=== PATIENT | male | born 1955 | race Caucasian/White ===

== ENCOUNTER 2017-02-03 19:43 | Emergency (ER) | payer OTHER ==
[~2017-02-03] VITALS: Ht 177.8 cm; Wt 71.0 kg
[2017-02-03 19:51] VITALS: BP 179/93; PULSE 61; RESP 18; O2SAT 97
--- NOTE | 2017-02-03 20:46 | ED.REPORT ---
HPI-Abd Pain M 40 and Over Date of Service Feb 03, 2017 ED Provider: Carmine Lynch DO Pt is a 61 y/o male who presents to the ED c/o LLQ abdominal pain onset 2 hours ago. He describes his pain as "dull" and "aching" that now radiates to his back. He denies dysuria, hematuria, nausea, vomiting, diarrhea, constipation, or SOB. Nursing Notes Stated Complaint: CRAMPS ON LEFT SIDE Chief Complaint: Male Abdominal Pain Nursing Notes Reviewed: Yes Allergies: Coded Allergies: No Known Allergies (Unverified , 02/03/17) General Time Seen by MD: 20:46 Chief Complaint Abdominal pain (LLQ) Hx Obtained From: Patient Arrived By: Walk-in Sudden in Onset?: Yes Onset Occurred: 1 - 4 hours ago Location: : LLQ Quality: Aching, Dull Radiation: : Back Severity: Current: Moderate Severity: Maximum: Severe Recent Healthcare: No recent hospitalization, Recent doctor visit Similar Sx Previous: No Risk Factors )( AAA Risk Stratification Risk factors reviewed Past Medical History Past Medical History Denies Past Surgical History Hernia Smoking History Unknown if Ever Smoker Social History Alcohol Use: "Social" Ambulatory Status Independent Review of Systems Respiratory: Denies: Shortness of breath GI: Reports: Abdominal pain (LLQ), Denies: Constipation, Diarrhea, Nausea, Vomiting Male: Denies Dysuria, Denies Hematuria Complete sys rev & neg: except as marked. Physical Exam Initial Vital Signs Vital Signs (First) Date Time Temp Pulse Resp B/P Pulse Ox O2 Delivery O2 Flow Rate FiO2 02/03/17 19:51 37.5 61 18 179/93 97 Room Air Initial VS: Reviewed Head / Eyes: Atraumatic, Normocephalic Neck: Supple, Full range of motion Extremities: Vascular intact, Neuro intact, No swelling, No tenderness Skin: Warm, Dry, No cyanosis Neurologic: Alert, Oriented, Nonfocal Psychiatric: Mood/affect normal, Behavior normal, Normal thought content General/Constitutional: Awake, Alert Distress / Hydration: Positive: Distress moderate Respiratory / Chest: Atraumatic, Breath sounds NL, Breath sounds = bilat, No respiratory distress Cardiovascular: Heart rate NL, Regular rhythm, Heart sounds NL Abdomen: Atraumatic, Soft Tenderness/Guarding/Rebound: Positive: Tender LLQ... (Moderate) Back: Inspection NL, Full range of motion Mild CVAT Interpretation & Diagnostics Lab Results Interpretation Result Diagram: 02/03/17211002/03/172110 Test 02/03/17 21:11 02/03/17 21:12 02/03/17 21:39 White Blood Count 15.4th/mm3 (3.8-10.1) Red Blood Count 4.51mil/mm3 (4.40-5.80) Hemoglobin 13.7g/dL (13.8-17.2) Hematocrit 40.4% (41.0-50.0) Mean Corpuscular Volume 89.6fL (81-100) Mean Corpuscular Hemoglobin 30.4pg (27.0-35.0) Mean Corpuscular Hemoglobin Concent 33.9% (32.0-37.0) Red Cell Distribution Width 12.9% (12.3-15.4) Platelet Count 285bil/L (150-400) Neutrophils (%) (Auto) 83.9% (40-74) Lymphocytes (%) (Auto) 6.7% (14-46) Monocytes (%) (Auto) 8.6% (4-12) Eosinophils (%) (Auto) 0.3% (0-5) Basophils (%) (Auto) 0.2% (0-3) Sodium Level 138mEq/L (134-144) Potassium Level 4.0mEq/L (3.5-5.2) Chloride Level 100mEq/L (97-108) Carbon Dioxide Level 22mmol/L (18-29) Blood Urea Nitrogen 29mg/dL (8-27) Creatinine 1.23mg/dL (0.76-1.27) Estimat Glomerular Filtration Rate 64mL/min (>59) Glucose Level 105mg/dL (60-99) Calcium Level 9.3mg/dL (8.5-10.1) Magnesium Level 2.2mg/dL (1.6-2.6) Total Bilirubin 0.4mg/dL (0.0-1.2) Aspartate Amino Transf (AST/SGOT) 20U/L (0-50) Alanine Aminotransferase (ALT/SGPT) 16U/L (0-44) Alkaline Phosphatase 76U/L (25-160) Total Protein 7.7g/dL (6.4-8.4) Albumin 4.5g/dL (3.4-5.0) Lipase 23U/L (13-60) Hold Carlson Top Tube Received (Received) Urine Color Yellow (YELLOW) Urine Appearance Clear (CLEAR,HAZY) Urine pH 6.0 (5.0-8.0) Urine Specific [place] 1.015 (1.003-1.035) Urine Protein Negativemg/dL (NEG,TRACE) Urine Glucose (UA) Negativemg/dL (NEGATIVE) Urine Ketones Tracemg/dL (NEGATIVE) Urine Occult Blood Large (NEGATIVE) Urine Nitrite Negative (NEGATIVE) Urine Bilirubin Negative (NEGATIVE) Urine Urobilinogen Normalmg/dL (NORMAL) Urine Leukocyte Esterase Negative (NEGATIVE) Urine RBC 11-50/hpf (0-2) Urine WBC 0-5/hpf (0-5) Urine Epithelial Cells Occasional/hpf (NONE-MOD) Urine Crystals None seen (NONE SEEN) Urine Bacteria Few/hpf (NONE-FEW) Urine Hyaline Casts None/lpf (NONE) Urine Granular Casts None seen (NONE SEEN) Urine Waxy Casts None seen (NONE SEEN) Urine Red Blood Cell Casts None seen (NONE SEEN) Urine White Blood Cell Casts None seen (NONE SEEN) Urine Mucus None seen (None Seen) Urine Trichomonas None seen (NONE SEEN) Urine Yeast None (NONE SEEN) Urinalysis Comment None Urine Culture Reflexed Not indicated Hold Urine Received (Received) CT Abd / Pelvis Interpretation IMPRESSION: 1. 4 mm diameter ureteral calculus at the left ureterovesicular junction with resultant moderate perinephric fat stranding and mild hydronephrosis. This finding was discussed with Dr. Lynch 10:15 PM on 02/03/17. 2. Diverticulosis. No acute diverticulitis. 3. Nonvisualization of the appendix. However, there are no ancillary findings to suggest acute appendicitis. Dictated by: Awa Davenport M.D. on 02/03/2017 at 22:10 Approved by: Awa Davenport M.D. on 02/03/2017 at 22:15 Study type: Abdominal CT no contrast Interpretation / Wet Read by: Interpret - Radiologist Re-Eval/Medical Decision Med Decision/Clinical Course Left UVJ stone with moderate [place]. Good relief of pain. Normal renal function. No signs of infection. We will treat symptomatically and have close outpatient follow-up. Routine opiate warnings given Source of Hx: Old records Time of Eval: 22:54 Patient Status: Condition improved Re-Evaluation/Progress Note: Patient rechecked. Discussed plan for discharge. Patient understands and agrees with plan. F/U instructions and RTER warnings given. All questions addressed at this time. Counseled Regarding: Diagnosis, Lab results, Need for follow-up, When/why to return to ED Discharge & Departure Primary Impression: Left ureteral stone Disposition: Home Vital Signs - All Vital Signs Date Time Temp Pulse Resp B/P Pulse Ox O2 Delivery O2 Flow Rate FiO2 02/04/17 00:15 36.8 80 20 152/86 99 Room Air 02/03/17 21:54 36.7 75 18 160/93 99 Room Air 02/03/17 19:51 37.5 61 18 179/93 97 Room Air )( All Prior VS Reviewed: Yes Condition: Stable Patient Instructions: Kidney Stones (ED) Additional Instructions: Your CT results were reassuring. It appears you have a left uretal kidney stone that is about to pass. Take Flomax once a day for 5 days. Take 1-2 [place] every 6 hours for pain. Do not drive, drink alcohol, or take acetaminophen while taking [place]. Follow-up with your primary care doctor tomorrow to be seen this week for a recheck. Return to the emergency department if you have any new or worsening symptoms, including fevers, nausea, or vomiting. If you haven't passed the stone in one week, follow-up with a urologist. Urologist: Dr. Ai Dupree Referrals: NOPCP (PCP) Ai Dupree MD Scribe Attestation Portions of this note were transcribed by Chloé Garcia. I, Dr. Lynch, personally performed the history, physical exam and medical decision-making; I reviewed and confirmed the accuracy of the information in the transcribed note. copies to: Ai uDpree MD, Todd P DO Feb 03, 2017 20:46 Chloé Garcia Feb 03, 2017 21:04
[2017-02-03] MEDS ORDERED: Ondansetron 2 mg/mL 2 mL Inj IVPUSH PRN (21:05)
[2017-02-03] MEDS ORDERED: 0.9% Sodium Chloride 1,000 ML IV ONE (21:05)
[2017-02-03 21:15] LABS: BASOPHILS % (AUTO) 0.2 % (0-3); EOSINOPHILS % (AUTO) 0.3 % (0-5); MONOCYTES % (AUTO) 8.6 % (4-12); Mean Corpuscular Hemoglobin 30.4 pg (27.0-35.0); Mean Corpuscular Volume 89.6 fL (81-100); NEUTROPHILS % (AUTO) 83.9 % (40-74); Platelet Count 285 bil/L (150-400)
[2017-02-03] MEDS: HYDROmorphone 0.5 mg/0.5 mL iSecure Syringe IVPUSH PRN ×2 (21:20→21:53)
[2017-02-03 21:40] LABS: Magnesium 2.2 mg/dL (1.6-2.6)
[2017-02-03 21:54] VITALS: BP 160/93; PULSE 75; RESP 18; O2SAT 99
--- NOTE | 2017-02-03 22:16 | DRSVH ---
PROCEDURE: CT KUB ([id number]) INDICATIONS: LLQ and left flank pain, hematuria TECHNIQUE: Noncontrast 5 mm thick sections acquired from the diaphragms to the symphysis. 5 mm thick coronal an d sagittal reformats were then performed. For radiation dose reduction, the following was used: aut omated exposure control, adjustment of mA and/or kV according to patient size. COMPARISON: None. FINDINGS: Image quality: Excellent. Lung bases: Lung bases are clear. Heart size is normal. Urinary system: The right kidney demonstrates normal size. No right hydronephrosis, perinephric fat stranding, or nephrolithiasis. The left kidney is mildly enlarged with moderate perinephric fat stran ding and mild hydronephrosis. There is mild left hydroureter. A 4 mm diameter calculus is present at the left ureterovesicular junction (series 2, image 64). The bladder is thin walled. No bladder calcu li. Other solid organs: Liver and spleen are normal in size. Gallbladder is unremarkable. Pancreas is normal in contours. No adrenal nodules. Peritoneum and bowel: Unenhanced bowel loops demonstrate normal wall thickness and caliber. The appe ndix is not visualized; however there is no discrete right lower quadrant fluid or fat stranding to s uggest acute appendicitis. There are scattered sigmoid diverticula. No evidence for diverticulitis. N o free fluid or air. Nodes and vessels: No retroperitoneal or mesenteric adenopathy by size criteria. Aorta and inferior vena cava are normal in caliber. Abdominal wall: No ventral hernias. Pelvis: No free pelvic fluid. No inguinal hernias or adenopathy. Bones: No suspicious bony lesions. No vertebral body compression fractures. IMPRESSION: 1. 4 mm diameter ureteral calculus at the left ureterovesicular junction with resultant moderate herve nephric fat stranding and mild hydronephrosis. This finding was discussed with Dr. Lynch 10:15 PM on 02/03/17. 2. Diverticulosis. No acute diverticulitis. 3. Nonvisualization of the appendix. However, there are no ancillary findings to suggest acute append icitis. Dictated by: Awa Davenport M.D. on 02/03/2017 at 22:10 Approved by: Awa Davenport M.D. on 02/03/2017 at 22:15
[2017-02-03 22:39] LABS: APPEARANCE,URINE CLEAR (CLEAR,HAZY); COLOR,URINE YELLOW (YELLOW)
[2017-02-03 22:40] LABS: OCCULT BLOOD,URINE LARGE (NEGATIVE); UROBILINOGEN,URINE NORMAL (NORMAL)
[2017-02-03] MEDS ORDERED: _HYDROcodone/APAP 5-325 mg Tablet PO PRN (22:55)
[2017-02-04 00:15] VITALS: BP 152/86; PULSE 80; RESP 20; O2SAT 99
[2017-02-04] MEDS ORDERED: ONDA4TAB9 PO (13:43)
== END 2017-02-03 23:10 | disposition home or self-care (01) ==
LOC: SED 19:43
DX: N20.1 Calculus of ureter (principal)
CPT/HCPCS: 36415; 74176; 80053; 81000; 83690; 83735; 85025; 96361; 96374; 96375; 96376; 99285; J1170; J1885; J2405; J7030

== ENCOUNTER 2017-02-04 11:23 | Emergency (ER) | payer OTHER ==
[~2017-02-04] VITALS: Ht 177.8 cm; Wt 70.5 kg
[2017-02-04 11:31] VITALS: BP 174/95; PULSE 63; RESP 16; O2SAT 100
--- NOTE | 2017-02-04 11:50 | ED.REPORT ---
HPI-Abd Pain M 40 and Over Date of Service Feb 04, 2017 ED Provider: Dr. Echevarria Pt is a generally healthy 61 y/o male presenting to the ED c/o recurrence of intermittent left flank and LLQ abdominal pain. The patient was seen in the ED for the same complaints last night and was diagnosed with a 4 mm ureteral stone that was located at the UVJ. He woke up this morning and was experiencing nausea , vomiting, and recurrence of his pain. He took half of a tablet of his prescribed hydrocodone without relief and then took another full tablet on the way to the ED. He says he was not given any anti-emetics. Pt denies fever. Nursing Notes Stated Complaint: REACTION TO MEDICATION Chief Complaint: Male Abdominal Pain Nursing Notes Reviewed: Yes Allergies: Coded Allergies: No Known Allergies (Unverified , 02/04/17) Scheduled PRN Ondansetron ODT (Zofran ODT) 4 Mg Tablet 4 MG PO Q4H PRN PRN For Nausea General Time Seen by MD: 11:50 Chief Complaint Flank pain left Hx Obtained From: Patient Arrived By: Walk-in Sudden in Onset?: No Onset Occurred: 1 - 4 hours ago Symptom Duration: Intermittent Progression since Onset: Intermittent Location: : Flank left: LLQ Quality: Painful Severity: Current: Moderate Severity: Maximum: Severe Recent Healthcare: Recent doctor visit, Recent testing, Previous diagnosis, Prior workup Past Medical History Past Medical History Nephrolithiasis Past Surgical History Hernia Smoking History Unknown if Ever Smoker Social History Alcohol Use: "Social" Ambulatory Status Independent Review of Systems Constitutional: Denies: Fever GI: Reports: Abdominal pain, Nausea, Vomiting Male: Reports Flank pain Complete sys rev & neg: except as marked. Physical Exam Initial Vital Signs Vital Signs (First) Date Time Temp Pulse Resp B/P Pulse Ox O2 Delivery O2 Flow Rate FiO2 02/04/17 11:31 36.7 63 16 174/95 100 Room Air Initial VS: Reviewed, Vital signs abnormal Head / Eyes: Atraumatic, Normocephalic ENT: Mucous membranes moist, Conjunctiva normal Neck: Supple, Full range of motion Extremities: Vascular intact, Neuro intact Skin: Warm, Dry, No cyanosis Neurologic: Alert, Oriented, Nonfocal Psychiatric: Mood/affect normal, Behavior normal, Normal thought content General/Constitutional: Awake, Alert, Cooperative, Not toxic appearing Distress / Hydration: Positive: Distress moderate (secondary to pain) Appearance / Presentation: Positive: In pain, Uncomfortable Respiratory / Chest: Breath sounds NL, Breath sounds = bilat, No respiratory distress, No rales, No rhonchi, No wheezing Cardiovascular: Heart rate NL, Regular rhythm, Heart sounds NL, No murmurs Abdomen: Soft, Non-tender, No guarding, No rebound, No distention Back: Full range of motion, Painless range of motion Left CVAT present Re-Eval/Medical Decision Med Decision/Clinical Course Pain control given, discussion regarding appropriate analgesia. Return in follow-up precautions given Source of Hx: Old records Summary of Info: Review of visit from yesterday Time of Eval: 13:35 Re-Evaluation/Progress Note: Pt rechecked. No acute distress. Pain improved. Informed pt of plan for discharge. Pt understands and agrees with plan for discharge. F/U instructions and RTER warnings given. All questions addressed. Counseled Regarding: Diagnosis, Need for follow-up, When/why to return to ED Discharge & Departure Primary Impression: Left ureteral stone Disposition: Home Vital Signs - All Vital Signs Date Time Temp Pulse Resp B/P Pulse Ox O2 Delivery O2 Flow Rate FiO2 02/04/17 13:56 36.7 65 16 159/89 100 Room Air 02/04/17 11:31 36.7 63 16 174/95 100 Room Air )( All Prior VS Reviewed: Yes Condition: Stable Patient Instructions: Ureteral Stones (ED) Additional Instructions: You have a 4 mm left ureteral stone that is almost passed based on the CT scan taken yesterday. You can take Naproxen and Hydrocodone together. It is OK to take 1-2 tablets of the hydrocodone at a time. This medication is sedating so do not drive or consume alcohol while taking it. Take Zofran every 4 hours as needed for nausea and vomiting. Return to the emergency department if you experience uncontrolled pain, persistent vomiting, fever, inability to urinate, or for other concerning symptoms. Follow-up with your primary care doctor in 2-3 days if symptoms persist. You may also make an appointment with the urologist who was been referred to you today. Referrals: Olivia Catalan MD Scribe Attestation Portions of this note were transcribed by Alistair Zapien. I, Dr. Echevarria personally performed the history, physical exam and medical decision-making; I reviewed and confirmed the accuracy of the information in the transcribed note. Low Echevarria DO Feb 04, 2017 11:50 ALISTAIR ZAPIEN Feb 04, 2017 12:04
[2017-02-04] MEDS ORDERED: HYDROmorphone 0.5 mg/0.5 mL iSecure Syringe IVPUSH PRN (12:05)
[2017-02-04] MEDS ORDERED: Ondansetron 2 mg/mL 2 mL Inj IVPUSH PRN (12:05)
[2017-02-04] MEDS ORDERED: ONDA4TAB9 PO (13:43)
[2017-02-04 13:56] VITALS: BP 159/89; PULSE 65; RESP 16; O2SAT 100
== END 2017-02-04 13:57 | disposition home or self-care (01) ==
LOC: SED 11:23
DX: N20.1 Calculus of ureter (principal); Z87.442 Personal history of urinary calculi
CPT/HCPCS: 96374; 96375; 99284; J1170; J1885; J2405